=== PATIENT | female | born 1975 ===

== ENCOUNTER 2017-07-06 11:53 | Emergency (ER) | payer SELFPAY ==
[~2017-07-06] VITALS: Ht 157.5 cm; Wt 66.3 kg
[~2017-07-06 11:53] MED LIST: IBUP-1223 PO; OXYC-302 PO
[2017-07-06 11:54] VITALS: BP 150/100
[2017-07-06] MEDS ORDERED: LIDOCAINE 1%-EPI 1:100K, 20ML SQ ONE (12:30)
[2017-07-06] MEDS ORDERED: BUPIVACAINE/PF-EPI 0.25% 1:200K SQ ONE (12:30)
[2017-07-06] MEDS ORDERED: LIDOCAINE-MPF 1%, 5ML ONE (12:50)
[2017-07-06] MEDS ORDERED: BUPIVACAINE 0.25% ONE (12:51)
[2017-07-06] MEDS ORDERED: LIDOCAINE-MPF 1%, 5ML INFIL ONE (13:00)
== END 2017-07-06 13:26 | disposition home or self-care (01) ==
LOC: ED 13:15
DX: K08.89 Other specified disorders of teeth and supporting structures (principal)
CPT/HCPCS: 64400; 99284

== ENCOUNTER 2018-02-16 12:29 | Emergency (ER) | payer MEDICAID ==
[~2018-02-16] VITALS: Ht 157.5 cm; Wt 71.4 kg
[2018-02-16 12:40] VITALS: BP 117/74
[2018-02-16] MEDS ORDERED: KETOROLAC 30 MG/1 ML IM ONE (13:00)
[2018-02-16] MEDS ORDERED: PROPARACAINE OPHTH 0.5%, 15ML EACHEYE ONE (13:00)
[2018-02-16] MEDS ORDERED: FLUORESCEIN/BENOXINATE 5 ML DROPS OP ONE (13:00)
[2018-02-16] MEDS ORDERED: KETOROLAC 30 MG/1 ML ONE (13:13)
== END 2018-02-16 13:30 | disposition home or self-care (01) ==
LOC: ED 13:20
DX: S39.012A Strain of muscle, fascia and tendon of lower back, initial encounter (principal); G89.29 Other chronic pain; H01.005 Unspecified blepharitis left lower eyelid; H01.002 Unspecified blepharitis right lower eyelid; B95.8 Unspecified staphylococcus as the cause of diseases classified elsewhere; F15.10 Other stimulant abuse, uncomplicated; Z87.42 Personal history of other diseases of the female genital tract; X58.XXXA Exposure to other specified factors, initial encounter; Y93.89 Activity, other specified; Y92.89 Other specified places as the place of occurrence of the external cause; Y99.8 Other external cause status
CPT/HCPCS: 96372; 99283; J1885

== ENCOUNTER 2018-02-28 09:01 | Emergency (ER) | payer MEDICAID ==
[~2018-02-28] VITALS: Ht 157.5 cm; Wt 71.9 kg
[2018-02-28 09:03] VITALS: BP 116/70
== END 2018-02-28 11:14 | disposition home or self-care (01) ==
LOC: ED 10:25
DX: H60.92 Unspecified otitis externa, left ear (principal); L04.9 Acute lymphadenitis, unspecified; M54.2 Cervicalgia; F17.200 Nicotine dependence, unspecified, uncomplicated
CPT/HCPCS: 99283

== ENCOUNTER 2018-03-16 12:07 | Emergency (ER) | payer MEDICAID ==
[~2018-03-16] VITALS: Ht 157.5 cm; Wt 72.9 kg
[2018-03-16 13:46] LABS: BASOPHILS # (AUTO) 0.01 x10^3/uL (0-0.1); BASOPHILS % (AUTO) 0 % (0-1); EOSINOPHILS # (AUTO) 0.17 x10^3/uL (0-0.4); EOSINOPHILS % (AUTO) 2 % (1-7); LYMPHOCYTES # (AUTO) 1.63 x10^3/uL (1-3.4); LYMPHOCYTES % (AUTO) 17 % (22-44); MD NO; MEAN CORPUSCULAR HEMOGLOBIN 27.2 pg (27.0-34.8); MEAN CORPUSCULAR HGB CONC 33.5 g/dL (32.4-35.8); MEAN CORPUSCULAR VOLUME 81.3 fL (80-100); MONOCYTES # (AUTO) 0.64 x10^3/uL (0.2-0.8); MONOCYTES % (AUTO) 7 % (2-9); NEUTROPHILS # (AUTO) 7.03 x10^3/uL (1.8-6.8); NEUTROPHILS % (AUTO) 74 % (42-75); PLATELET COUNT 223 x10^3/uL (130-400); RED BLOOD COUNT 4.14 x10^6/uL (3.82-5.3); RED CELL DISTRIBUTION WIDTH 17.5 % (9.6-15.2)
[2018-03-16 13:52] LABS: ALANINE AMINOTRANSFERASE 19 U/L (12-78); ALBUMIN 3.8 g/dL (3.4-5.0); ANION GAP 6 mmol/L (5-15); CALCIUM 8.3 mg/dL (8.5-10.1); CHLORIDE 109 mmol/L (98-107); CREATININE 0.69 mg/dL (0.55-1.02)
[2018-03-16 13:56] LABS: ALKALINE PHOSPHATASE 57 U/L (45-117); BILIRUBIN,TOTAL 0.1 mg/dL (0.2-1.0); TOTAL PROTEIN 7.3 g/dL (6.4-8.2); TROPONIN I < 0.015 ng/mL (0.000-0.045)
[2018-03-16 13:57] VITALS: BP 108/63
== END 2018-03-16 14:41 | disposition home or self-care (01) ==
LOC: ED 13:26
DX: F41.1 Generalized anxiety disorder (principal); R06.4 Hyperventilation; F17.200 Nicotine dependence, unspecified, uncomplicated
CPT/HCPCS: 36415; 71045; 80053; 84484; 85025; 93005; 99284

== ENCOUNTER 2018-09-05 08:48 | Emergency (ER) | payer MEDICAID ==
[~2018-09-05] VITALS: Ht 157.5 cm; Wt 78.2 kg
[2018-09-05 09:32] LABS: BASOPHILS # (AUTO) 0.02 x10^3/uL (0-0.1); BASOPHILS % (AUTO) 0 % (0-1); EOSINOPHILS # (AUTO) 0.13 x10^3/uL (0-0.4); EOSINOPHILS % (AUTO) 2 % (1-7); LYMPHOCYTES % (AUTO) 23 % (22-44); MD NO; MEAN CORPUSCULAR HEMOGLOBIN 28.5 pg (27.0-34.8); MEAN CORPUSCULAR HGB CONC 32.8 g/dL (32.4-35.8); MEAN CORPUSCULAR VOLUME 86.9 fL (80-100); MEAN PLATELET VOLUME 8.9 fL (7.4-10.4); MONOCYTES % (AUTO) 7 % (2-9); NEUTROPHILS # (AUTO) 4.05 x10^3/uL (1.8-6.8); NEUTROPHILS % (AUTO) 68 % (42-75); PLATELET COUNT 200 x10^3/uL (130-400); RED BLOOD COUNT 4.41 x10^6/uL (3.82-5.3); RED CELL DISTRIBUTION WIDTH 17.8 % (9.6-15.2)
--- NOTE | 2018-09-05 09:40 | NUR ---
Pt assessed. C/o positive test but wants to double check. LMP last month. Pt also reports vaginal discharge. Will cont to monitor. NAD
[2018-09-05 09:43] LABS: ALBUMIN 3.6 g/dL (3.4-5.0); ANION GAP 8 mmol/L (5-15); CALCIUM 8.6 mg/dL (8.5-10.1); CHLORIDE 106 mmol/L (98-107); CREATININE 0.65 mg/dL (0.55-1.02)
--- NOTE | 2018-09-05 10:12 | NUR ---
Lab at drawing RH Pt updated we are waiting on US results. No additional needs at this time. Will cont to monitor
[2018-09-05 11:09] VITALS: BP 106/45
== END 2018-09-05 11:13 | disposition home or self-care (01) ==
LOC: ED 11:02
DX: O26.891 Other specified pregnancy related conditions, first trimester (principal); R10.30 Lower abdominal pain, unspecified; F17.200 Nicotine dependence, unspecified, uncomplicated; Z3A.01 Less than 8 weeks gestation of pregnancy
CPT/HCPCS: 36415; 76801; 80048; 82040; 84702; 85025; 86901; 99284

== ENCOUNTER 2018-09-25 12:26 | Emergency (ER) | payer MEDICAID ==
[~2018-09-25] VITALS: Ht 157.5 cm; Wt 78.0 kg
--- NOTE | 2018-09-25 13:01 | NUR ---
PT C/O INTERMITTENT CRAMPING TO LOWER ABDOMEN 5-6/10 ON PAIN SCALE SINCE EARLY AUGUST, PT SEEN 09/05 FOR SAME SYMPTOMS. PT IS 14 WEEKS WITH 14TH . 0/10 PAIN AT THIS TIME. NAD NOTED AT THIS TIME. PT DENIES VB. RESPIRATIONS EVEN AND UNLABORED ON RA. SIDE RAIL UP, CALL LIGHT IN REACH. PT WATCHING TELEVISION.
[2018-09-25 13:27] LABS: BASOPHILS # (AUTO) 0.03 x10^3/uL (0-0.1); BASOPHILS % (AUTO) 0 % (0-1); EOSINOPHILS # (AUTO) 0.11 x10^3/uL (0-0.4); EOSINOPHILS % (AUTO) 2 % (1-7); LYMPHOCYTES # (AUTO) 1.39 x10^3/uL (1-3.4); LYMPHOCYTES % (AUTO) 22 % (22-44); MD NO; MEAN CORPUSCULAR HEMOGLOBIN 29.5 pg (27.0-34.8); MEAN CORPUSCULAR HGB CONC 33.3 g/dL (32.4-35.8); MEAN CORPUSCULAR VOLUME 88.7 fL (80-100); MEAN PLATELET VOLUME 8.9 fL (7.4-10.4); MONOCYTES # (AUTO) 0.41 x10^3/uL (0.2-0.8); MONOCYTES % (AUTO) 6 % (2-9); NEUTROPHILS # (AUTO) 4.38 x10^3/uL (1.8-6.8); NEUTROPHILS % (AUTO) 69 % (42-75); PLATELET COUNT 181 x10^3/uL (130-400); RED BLOOD COUNT 3.99 x10^6/uL (3.82-5.3); RED CELL DISTRIBUTION WIDTH 17.4 % (9.6-15.2)
[2018-09-25 13:39] LABS: ALANINE AMINOTRANSFERASE 14 U/L (12-78); ALBUMIN 3.3 g/dL (3.4-5.0); ANION GAP 9 mmol/L (5-15); CALCIUM 8.6 mg/dL (8.5-10.1); CHLORIDE 106 mmol/L (98-107); CREATININE 0.68 mg/dL (0.55-1.02)
[2018-09-25 13:57] LABS: ALKALINE PHOSPHATASE 40 U/L (45-117); BILIRUBIN,TOTAL 0.2 mg/dL (0.2-1.0); TOTAL PROTEIN 6.9 g/dL (6.4-8.2)
[2018-09-25 14:04] LABS: MICROSCOPIC NOT IND
[2018-09-25 14:19] LABS: CULTURE INDICATED? NO
--- NOTE | 2018-09-25 14:25 | NUR ---
Pt laying back in bed with television on, using cell phone. Pt reports some cramping back, 3-4/10, per pt pain is tolerable. Pt awaiting US. Side rail up, call light in reach.
--- NOTE | 2018-09-25 15:16 | NUR ---
RETURNED FROM [facility] "I'M HAVING A LITTLE BIT OF CRAMPING" (05/28). DENIES NAUSEA.
[2018-09-25 15:18] VITALS: BP 97/54
== END 2018-09-25 16:25 | disposition home or self-care (01) ==
LOC: ED 16:19
DX: O26.891 Other specified pregnancy related conditions, first trimester (principal); R10.2 Pelvic and perineal pain; Z3A.09 9 weeks gestation of pregnancy
CPT/HCPCS: 36415; 76801; 80053; 81003; 84702; 85025; 99284